=== PATIENT | female | born 1960 | race Caucasian/White ===

== ENCOUNTER → 2018-05-29 | Outpatient (CLI) | payer OTHER ==
[~2018-05-29] MED LIST: ALPR-475 PO; ALPR0.25 PO; ASCO10004 PO; C-TESTOSTERONE PO; CAL/MAG/ZINC PO; ESTR8.1S2 TP; PROG100C2 PO; VITA1TAB19 PO; [UNRECOGNIZED DRUG - OTHER] PO
[2018-05-29 09:01] LABS: BASOPHILS # (AUTO) 0.03 x10^3/uL (0-0.1); BASOPHILS % (AUTO) 1 % (0-1); EOSINOPHILS # (AUTO) 0.07 x10^3/uL (0-0.4); EOSINOPHILS % (AUTO) 2 % (1-7); LYMPHOCYTES # (AUTO) 1.16 x10^3/uL (1-3.4); LYMPHOCYTES % (AUTO) 29 % (22-44); MD NO; MEAN CORPUSCULAR HEMOGLOBIN 30.9 pg (27.0-34.8); MEAN CORPUSCULAR VOLUME 91.1 fL (80-100); MEAN PLATELET VOLUME 8.3 fL (7.4-10.4); MONOCYTES # (AUTO) 0.31 x10^3/uL (0.2-0.8); MONOCYTES % (AUTO) 8 % (2-9); NEUTROPHILS # (AUTO) 2.45 x10^3/uL (1.8-6.8); NEUTROPHILS % (AUTO) 61 % (42-75); PLATELET COUNT 219 x10^3/uL (130-400); RED BLOOD COUNT 4.66 x10^6/uL (3.82-5.3); RED CELL DISTRIBUTION WIDTH 12.9 % (9.6-15.2)
[2018-05-29 09:14] LABS: ALANINE AMINOTRANSFERASE 26 U/L (12-78); ALBUMIN 3.8 g/dL (3.4-5.0); ANION GAP 3 mmol/L (5-15); CALCIUM 8.9 mg/dL (8.5-10.1); CHLORIDE 106 mmol/L (98-107)
[2018-05-29 09:17] LABS: ALKALINE PHOSPHATASE 55 U/L (45-117); BILIRUBIN,TOTAL 0.4 mg/dL (0.2-1.0); CREATININE 0.74 mg/dL (0.55-1.02); TOTAL PROTEIN 7.1 g/dL (6.4-8.2)
== END | disposition home or self-care (01) ==
LOC: MERGE 07:53 → STAR 07:53
PROVIDERS: ATTEND Colon & Rectal Surgery
DX: Z01.818 Encounter for other preprocedural examination (principal)
CPT/HCPCS: 36415; 80053; 85025; 93005

== ENCOUNTER 2018-06-06 07:27 | Inpatient (IN) | payer OTHER ==
[~2018-06-06] VITALS: Ht 157.5 cm; Wt 53.3 kg
[~2018-06-06 07:27] MED LIST changes: +BUPIVACAINE/PF-EPI 0.5% 1:200K ONE; +INDOCYANINE GREEN 25 MG VIAL ONE
[2018-06-06] MEDS ORDERED: SCOPOLAMINE PATCH, 1.5MG PATCH.TD72 TD ONE (08:10)
[2018-06-06 08:23] VITALS: BP 129/81
[2018-06-06] MEDS: LACTATED RINGERS 1,000 ML IV SCH ×2 (08:23→18:15)
[2018-06-06] MEDS ORDERED: DEXAMETHASONE 4 MG/ML, 1ML ONE ×2 (10:28→14:30)
[2018-06-06] MEDS ORDERED: PROPOFOL 10 MG/ML, 20ML ONE (10:29)
[2018-06-06] MEDS ORDERED: ONDANSETRON 2MG/ML, 2ML ONE (10:29)
[2018-06-06] MEDS ORDERED: LIDOCAINE-MPF 2% ,5ML ONE (10:29)
[2018-06-06] MEDS ORDERED: ROCURONIUM 10MG/ML,5ML ONE (10:29)
[2018-06-06] MEDS ORDERED: METOCLOPRAMIDE 5 MG/ML, 2ML ONE (10:29)
[2018-06-06] MEDS ORDERED: MIDAZOLAM 1 MG/ML, 2ML ONE (10:30)
[2018-06-06] MEDS ORDERED: FENTANYL PF 100 MCG/2ML ONE ×2 (10:30→15:28)
[2018-06-06] MEDS ORDERED: CEFOTETAN 1 GM ONE (12:59)
[2018-06-06] MEDS ORDERED: NEOSTIGMINE 1 MG/ML, 10ML ONE (14:30)
[2018-06-06] MEDS ORDERED: GLYCOPYRROLATE 0.2MG/1ML, 5ML ONE (14:31)
[2018-06-06] MEDS ORDERED: HYDROmorphone 2 MG/ML, 1ML ONE (15:28)
[2018-06-06] MEDS ORDERED: HYDROmorphone 2 MG/ML, 1ML IV PRN (15:30)
[2018-06-06] MEDS ORDERED: ONDANSETRON 2MG/ML, 2ML IVPush PRN (15:30)
[2018-06-06] MEDS ORDERED: LABETALOL 5MG/ML, 20ML IV PRN (15:30)
[2018-06-06] MEDS ORDERED: MEPERIDINE/PF 25MG/0.5ML IVPush PRN (15:30)
[2018-06-06] MEDS ORDERED: MIDAZOLAM 1 MG/ML, 2ML IV PRN (15:30)
[2018-06-06] MEDS: FENTANYL PF 100 MCG/2ML IV PRN ×3 (15:30→15:40)
[2018-06-06] MEDS ORDERED: OXYcodone 5 MG/5 ML ORAL.SOL UDC PO PRN ×2 (15:30→16:00)
[2018-06-06] MEDS ORDERED: OXYcodone 5 MG/5 ML ORAL.SOL UDC ONE (15:58)
[2018-06-06] MEDS ORDERED: DEXAMETHASONE 4 MG/ML, 1ML IVPush PRN (18:00)
[2018-06-06] MEDS ORDERED: MORPHINE SULFATE 4 MG/ML, 1ML IVPush PRN (18:00)
[2018-06-06] MEDS ORDERED: TRAZODONE 50MG TABLET PO PRN (18:00)
[2018-06-06] MEDS ORDERED: DIPHENHYDRAMINE 25 MG CAPSULE PO PRN (18:00)
[2018-06-06] MEDS ORDERED: HALOPERIDOL 5 MG/ML IVPush PRN (18:00)
[2018-06-06] MEDS ORDERED: ONDANSETRON 2MG/ML, 2ML IV PRN (18:00)
[2018-06-06] MEDS ORDERED: OXYcodone IR 5MG TABLET PO PRN (18:00)
[2018-06-06] MEDS ORDERED: SCOPOLAMINE PATCH, 1.5MG PATCH.TD72 TD PRN (18:00)
[2018-06-06] MEDS ORDERED: LORazepam 1MG TABLET PO PRN (18:00)
[2018-06-06] MEDS ORDERED: CALCIUM CARBONATE 500 MG TAB.CHEW PO PRN (18:00)
[2018-06-06] MEDS ORDERED: LORazepam 2 MG/ML, 1ML IVPush PRN (18:00)
[2018-06-06] MEDS ORDERED: DIPHENHYDRAMINE 50 MG/ML, 1ML IVPush PRN (18:00)
[2018-06-06] MEDS: ACETAMINOPHEN 500 MG TABLET PO SCH (18:00)
[2018-06-06 19:54] VITALS: BP 105/61
[2018-06-07] MEDS: ACETAMINOPHEN 500 MG TABLET PO SCH ×4 (00:25→14:42)
[2018-06-07 00:45] VITALS: BP 108/66
[2018-06-07 04:35] LABS: BASOPHILS # (AUTO) 0.01 x10^3/uL (0-0.1); BASOPHILS % (AUTO) 0 % (0-1); EOSINOPHILS # (AUTO) 0.01 x10^3/uL (0-0.4); EOSINOPHILS % (AUTO) 0 % (1-7); LYMPHOCYTES # (AUTO) 0.79 x10^3/uL (1-3.4); LYMPHOCYTES % (AUTO) 7 % (22-44); MD NO; MEAN CORPUSCULAR HEMOGLOBIN 31.6 pg (27.0-34.8); MEAN CORPUSCULAR HGB CONC 34.1 g/dL (32.4-35.8); MEAN CORPUSCULAR VOLUME 92.7 fL (80-100); MEAN PLATELET VOLUME 8.7 fL (7.4-10.4); MONOCYTES # (AUTO) 0.67 x10^3/uL (0.2-0.8); MONOCYTES % (AUTO) 6 % (2-9); NEUTROPHILS # (AUTO) 9.41 x10^3/uL (1.8-6.8); NEUTROPHILS % (AUTO) 86 % (42-75); PLATELET COUNT 182 x10^3/uL (130-400); RED BLOOD COUNT 3.96 x10^6/uL (3.82-5.3); RED CELL DISTRIBUTION WIDTH 12.5 % (9.6-15.2)
[2018-06-07 04:36] VITALS: BP 98/55
[2018-06-07 04:47] LABS: ANION GAP 7 mmol/L (5-15); CALCIUM 8.2 mg/dL (8.5-10.1); CHLORIDE 105 mmol/L (98-107); CREATININE 0.65 mg/dL (0.55-1.02)
[2018-06-07 07:28] VITALS: BP 122/80
[2018-06-07] MEDS ORDERED: ENOXAPARIN 40 MG/0.4 ML SQ SCH (09:00)
[2018-06-07 12:28] VITALS: BP 119/77
[2018-06-07] MEDS ORDERED: OXYC-302 PO (13:27)
[2018-06-07 18:00] VITALS: BP 124/78
== END 2018-06-07 18:23 | disposition home or self-care (01) | DRG 331 ==
LOC: ORIP 07:27 → 4NOR 16:56
PROVIDERS: ADMIT Colon & Rectal Surgery; ATTEND Colon & Rectal Surgery
PROC: 07BB4ZZ Excision of Mesenteric Lymphatic, Percutaneous Endoscopic Approach (ICD-10-PCS; 2018-06-06)
PROC: 0DBL4ZZ Excision of Transverse Colon, Percutaneous Endoscopic Approach (ICD-10-PCS; principal; 2018-06-06 10:00)
DX: D12.3 Benign neoplasm of transverse colon (principal); D12.0 Benign neoplasm of cecum; D12.4 Benign neoplasm of descending colon
CPT/HCPCS: 36415; J3490; S0074; 80048; 83735; 85025; 86850; 86900; 88305; 88309; C1729; G0378; J1100; J1170; J1650; J2250; J2405; J2704; J2710; J3010; J2765; J7120

== ENCOUNTER → 2018-07-04 | Outpatient (CLI) | payer OTHER ==
[~2018-07-04] MED LIST changes: -BUPIVACAINE/PF-EPI 0.5% 1:200K ONE; -INDOCYANINE GREEN 25 MG VIAL ONE; +OMNIPAQUE 350 MG/ML, 100ML BOTTLE ONE; +OXYC-302 PO
== END | disposition home or self-care (01) ==
LOC: CFH 09:38
PROVIDERS: ATTEND Colon & Rectal Surgery
DX: K76.89 Other specified diseases of liver (principal); R91.8 Other nonspecific abnormal finding of lung field; C20 Malignant neoplasm of rectum
CPT/HCPCS: 71260; 74177; Q9967

== ENCOUNTER 2018-07-05 16:55 | Emergency (ER) | payer OTHER ==
[~2018-07-05] VITALS: Ht 157.5 cm; Wt 47.4 kg
[~2018-07-05 16:55] MED LIST changes: -OMNIPAQUE 350 MG/ML, 100ML BOTTLE ONE
[2018-07-05 17:42] LABS: BASOPHILS # (AUTO) 0.06 x10^3/uL (0-0.1); BASOPHILS % (AUTO) 1 % (0-1); EOSINOPHILS # (AUTO) 0.01 x10^3/uL (0-0.4); EOSINOPHILS % (AUTO) 0 % (1-7); LYMPHOCYTES # (AUTO) 0.85 x10^3/uL (1-3.4); LYMPHOCYTES % (AUTO) 7 % (22-44); MD NO; MEAN CORPUSCULAR HEMOGLOBIN 31.2 pg (27.0-34.8); MEAN CORPUSCULAR HGB CONC 34.1 g/dL (32.4-35.8); MEAN CORPUSCULAR VOLUME 91.4 fL (80-100); MONOCYTES # (AUTO) 1.13 x10^3/uL (0.2-0.8); MONOCYTES % (AUTO) 9 % (2-9); NEUTROPHILS # (AUTO) 10.85 x10^3/uL (1.8-6.8); NEUTROPHILS % (AUTO) 84 % (42-75); PLATELET COUNT 238 x10^3/uL (130-400); RED BLOOD COUNT 4.98 x10^6/uL (3.82-5.3); RED CELL DISTRIBUTION WIDTH 12.5 % (9.6-15.2)
[2018-07-05 17:57] LABS: ANION GAP 7 mmol/L (5-15); CALCIUM 8.9 mg/dL (8.5-10.1); CHLORIDE 102 mmol/L (98-107); CREATININE 0.72 mg/dL (0.55-1.02)
[2018-07-05 17:58] LABS: ALANINE AMINOTRANSFERASE 25 U/L (12-78)
[2018-07-05 18:00] LABS: ALKALINE PHOSPHATASE 69 U/L (45-117); BILIRUBIN,TOTAL 0.4 mg/dL (0.2-1.0); TOTAL PROTEIN 7.8 g/dL (6.4-8.2)
[2018-07-05] MEDS ORDERED: SODIUM CHLORIDE 0.9% 1,000ML IVBOLUS ONE (18:00)
[2018-07-05] MEDS ORDERED: SODIUM CHLORIDE 0.9% 1,000 ML IV ONE (18:00)
[2018-07-05] MEDS ORDERED: MORPHINE SULFATE 4 MG/ML, 1ML IVPush PRN (18:00)
[2018-07-05] MEDS ORDERED: ONDANSETRON 2MG/ML, 2ML IVPush ONE (18:00)
[2018-07-05] MEDS ORDERED: MORPHINE SULFATE 4 MG/ML, 1ML ONE ×2 (18:42→18:43)
[2018-07-05] MEDS ORDERED: ONDANSETRON 2MG/ML, 2ML ONE (18:42)
[2018-07-05] MEDS ORDERED: SODIUM CHLORIDE FLUSH 10ML SYR IVF ONE ×2 (19:00)
[2018-07-05] MEDS ORDERED: ACETAMINOPHEN 325 MG TABLET PO ONE (19:30)
[2018-07-05] MEDS ORDERED: ACETAMINOPHEN 325 MG TABLET ONE (19:39)
[2018-07-05 20:10] VITALS: BP 120/72
== END 2018-07-05 20:13 | disposition home or self-care (01) ==
LOC: ED 17:43
DX: R10.84 Generalized abdominal pain (principal); Z85.048 Personal history of other malignant neoplasm of rectum, rectosigmoid junction, and anus
CPT/HCPCS: 36415; 80053; 83690; 85025; 93005; 96374; 99285; J2405; J7030

== ENCOUNTER 2018-07-13 11:28 | Inpatient (IN) | payer OTHER ==
[~2018-07-13] VITALS: Ht 157.5 cm; Wt 46.0 kg
[2018-07-13 13:04] LABS: BASOPHILS # (AUTO) 0.04 x10^3/uL (0-0.1); BASOPHILS % (AUTO) 0 % (0-1); EOSINOPHILS # (AUTO) 0.08 x10^3/uL (0-0.4); EOSINOPHILS % (AUTO) 1 % (1-7); LYMPHOCYTES # (AUTO) 0.99 x10^3/uL (1-3.4); LYMPHOCYTES % (AUTO) 10 % (22-44); MD NO; MEAN CORPUSCULAR HEMOGLOBIN 30.2 pg (27.0-34.8); MEAN CORPUSCULAR HGB CONC 33.6 g/dL (32.4-35.8); MEAN CORPUSCULAR VOLUME 90.1 fL (80-100); MEAN PLATELET VOLUME 7.8 fL (7.4-10.4); MONOCYTES # (AUTO) 0.86 x10^3/uL (0.2-0.8); MONOCYTES % (AUTO) 9 % (2-9); NEUTROPHILS % (AUTO) 80 % (42-75); PLATELET COUNT 293 x10^3/uL (130-400); RED BLOOD COUNT 4.86 x10^6/uL (3.82-5.3); RED CELL DISTRIBUTION WIDTH 12.6 % (9.6-15.2)
[2018-07-13 13:16] LABS: ALANINE AMINOTRANSFERASE 27 U/L (12-78); ALBUMIN 3.4 g/dL (3.4-5.0); ANION GAP 9 mmol/L (5-15); CALCIUM 8.9 mg/dL (8.5-10.1); CHLORIDE 100 mmol/L (98-107); CREATININE 0.64 mg/dL (0.55-1.02)
[2018-07-13 13:18] LABS: ALKALINE PHOSPHATASE 72 U/L (45-117); BILIRUBIN,TOTAL 0.3 mg/dL (0.2-1.0); TOTAL PROTEIN 7.4 g/dL (6.4-8.2)
[2018-07-13] MEDS ORDERED: HYDROcodone/APAP 5/325 TABLET ONE ×2 (13:51→18:12)
[2018-07-13] MEDS ORDERED: LIDOCAINE-MPF 1%, 5ML ONE (13:55)
[2018-07-13] MEDS ORDERED: ONDANSETRON ODT 4 MG ONE (13:55)
[2018-07-13] MEDS ORDERED: ONDANSETRON ODT 4 MG PO ONE (14:00)
[2018-07-13] MEDS ORDERED: ACETAMINOPHEN 500 MG TABLET PO ONE (14:00)
[2018-07-13] MEDS ORDERED: HYDROcodone/APAP 5/325 TABLET PO ONE ×2 (14:00→18:30)
[2018-07-13 14:27] LABS: CLOSTRIDIUM DIFFICILE TOXIN NEGATIVE (Negative)
[2018-07-13 14:28] LABS: CLOSTRIDIUM DIFFICILE ANTIGEN POSITIVE
[2018-07-13] MEDS ORDERED: FENTANYL PF 100 MCG/2ML ONE (17:14)
[2018-07-13] MEDS: FENTANYL PF 100 MCG/2ML IVPush PRN ×2 (17:26→17:53)
[2018-07-13] MEDS ORDERED: SODIUM CHLORIDE 0.9% 1,000 ML IV ONE (17:46)
[2018-07-13] MEDS ORDERED: SODIUM CHLORIDE FLUSH 10ML SYR IVF PRN (18:00)
[2018-07-13] MEDS ORDERED: KETOROLAC 30 MG/1 ML ONE (19:41)
[2018-07-13] MEDS: ENOXAPARIN 40 MG/0.4 ML SQ SCH (19:59)
[2018-07-13] MEDS ORDERED: KETOROLAC 30 MG/1 ML IVPush ONE (20:00)
[2018-07-13] MEDS ORDERED: HYDROcodone/APAP 5/325 TABLET PO PRN (20:00)
[2018-07-13] MEDS ORDERED: ONDANSETRON ODT 4 MG PO PRN (20:00)
[2018-07-13] MEDS ORDERED: GABAPENTIN 300 MG CAPSULE PO PRN (20:00)
[2018-07-13] MEDS ORDERED: DOCUSATE 100 MG CAPSULE PO PRN (20:00)
[2018-07-13 20:06] VITALS: BP 124/78
[2018-07-14 01:32] VITALS: BP 102/66
[2018-07-14] MEDS: KETOROLAC 30 MG/1 ML IV PRN ×2 (02:20→08:53)
[2018-07-14 05:00] LABS: MEAN CORPUSCULAR HEMOGLOBIN 31.1 pg (27.0-34.8); MEAN CORPUSCULAR HGB CONC 34.2 g/dL (32.4-35.8); MEAN CORPUSCULAR VOLUME 90.8 fL (80-100); MEAN PLATELET VOLUME 8.4 fL (7.4-10.4); PLATELET COUNT 242 x10^3/uL (130-400); RED BLOOD COUNT 4.38 x10^6/uL (3.82-5.3); RED CELL DISTRIBUTION WIDTH 12.4 % (9.6-15.2)
[2018-07-14 05:14] LABS: ANION GAP 5 mmol/L (5-15); CHLORIDE 99 mmol/L (98-107)
[2018-07-14 05:16] LABS: CREATININE 0.64 mg/dL (0.55-1.02)
[2018-07-14 05:21] LABS: BASOPHILS # (AUTO) 0.01 x10^3/uL (0-0.1); BASOPHILS % (AUTO) 0 % (0-1); EOSINOPHILS # (AUTO) 0.01 x10^3/uL (0-0.4); EOSINOPHILS % (AUTO) 0 % (1-7); LYMPHOCYTES # (AUTO) 1.11 x10^3/uL (1-3.4); LYMPHOCYTES % (AUTO) 10 % (22-44); MD SCAN; MONOCYTES % (AUTO) 13 % (2-9); NEUTROPHILS # (AUTO) 8.88 x10^3/uL (1.8-6.8); NEUTROPHILS % (AUTO) 77 % (42-75)
[2018-07-14 06:47] VITALS: BP 123/72
[2018-07-14] MEDS: metroNIDAZOLE 500 MG TABLET PO SCH ×3 (08:52→23:59)
[2018-07-14 13:39] VITALS: BP 111/68
[2018-07-14] MEDS: KETOROLAC 30 MG/1 ML IVPush PRN ×2 (15:07→21:51)
[2018-07-14 19:58] VITALS: BP 118/68
[2018-07-14] MEDS: LIDODERM 5% PATCH TD PRN (21:51)
[2018-07-14] MEDS: TEMAZEPAM 15 MG CAPSULE PO PRN ×2 (21:51→22:03)
[2018-07-14] MEDS: ENOXAPARIN 40 MG/0.4 ML SQ SCH (22:03)
[2018-07-15 01:53] VITALS: BP 109/71
[2018-07-15] MEDS: KETOROLAC 30 MG/1 ML IVPush PRN (04:17)
[2018-07-15 04:31] LABS: MEAN CORPUSCULAR HEMOGLOBIN 31.1 pg (27.0-34.8); MEAN CORPUSCULAR HGB CONC 34.3 g/dL (32.4-35.8); MEAN CORPUSCULAR VOLUME 90.8 fL (80-100); MEAN PLATELET VOLUME 8.4 fL (7.4-10.4); PLATELET COUNT 237 x10^3/uL (130-400); RED BLOOD COUNT 4.39 x10^6/uL (3.82-5.3); RED CELL DISTRIBUTION WIDTH 12.4 % (9.6-15.2)
[2018-07-15 04:43] LABS: ALANINE AMINOTRANSFERASE 53 U/L (12-78); ALBUMIN 2.6 g/dL (3.4-5.0); ANION GAP 10 mmol/L (5-15); CALCIUM 8.9 mg/dL (8.5-10.1); CHLORIDE 102 mmol/L (98-107); CREATININE 0.55 mg/dL (0.55-1.02)
[2018-07-15 04:45] LABS: ALKALINE PHOSPHATASE 87 U/L (45-117); BILIRUBIN,TOTAL 0.6 mg/dL (0.2-1.0); TOTAL PROTEIN 6.8 g/dL (6.4-8.2)
[2018-07-15 05:42] LABS: BASOPHILS % (AUTO) 0 % (0-1); EOSINOPHILS # (AUTO) 0.02 x10^3/uL (0-0.4); EOSINOPHILS % (AUTO) 0 % (1-7); LYMPHOCYTES # (AUTO) 0.99 x10^3/uL (1-3.4); LYMPHOCYTES % (AUTO) 8 % (22-44); MD SCAN; MONOCYTES # (AUTO) 1.63 x10^3/uL (0.2-0.8); MONOCYTES % (AUTO) 13 % (2-9); NEUTROPHILS # (AUTO) 10.08 x10^3/uL (1.8-6.8); NEUTROPHILS % (AUTO) 79 % (42-75)
[2018-07-15 07:52] VITALS: BP 101/67
[2018-07-15] MEDS ORDERED: VANCOMYCIN 50 MG/ML ORAL SUSP PO SCH (11:00)
[2018-07-15] MEDS ORDERED: IBUPROFEN 100 MG/5 ML UDC PO PRN (11:30)
[2018-07-15] MEDS: IBUPROFEN 200 MG TABLET PO PRN ×2 (11:36→17:59)
[2018-07-15] MEDS: metroNIDAZOLE 500 MG TABLET PO SCH ×3 (13:00→21:24)
[2018-07-15] MEDS ORDERED: ONDA4TAB13 PO (13:33)
[2018-07-15] MEDS ORDERED: GABA300C10 PO (13:33)
[2018-07-15] MEDS ORDERED: METR500T PO (13:33)
[2018-07-15] MEDS ORDERED: ACET500T71 PO (13:33)
[2018-07-15] MEDS ORDERED: IBUP-1484 PO (13:33)
[2018-07-15 14:24] VITALS: BP 110/77
[2018-07-15] MEDS ORDERED: metroNIDAZOLE 500 MG TABLET PO SCH (16:00)
[2018-07-15] MEDS ORDERED: VANCOMYCIN PMX 1GM/200ML 200 ML IV ONE (17:30)
[2018-07-15 19:20] VITALS: BP 113/72
[2018-07-15] MEDS: TEMAZEPAM 15 MG CAPSULE PO PRN (21:22)
[2018-07-15] MEDS: ENOXAPARIN 40 MG/0.4 ML SQ SCH (21:23)
[2018-07-15] MEDS: LIDODERM 5% PATCH TD PRN (21:25)
[2018-07-16] MEDS: IBUPROFEN 200 MG TABLET PO PRN ×3 (00:09→13:56)
[2018-07-16 01:27] VITALS: BP 104/64
[2018-07-16 07:40] VITALS: BP 110/72
[2018-07-16 07:41] LABS: BASOPHILS # (AUTO) 0.02 x10^3/uL (0-0.1); BASOPHILS % (AUTO) 0 % (0-1); EOSINOPHILS # (AUTO) 0.12 x10^3/uL (0-0.4); EOSINOPHILS % (AUTO) 1 % (1-7); LYMPHOCYTES # (AUTO) 0.65 x10^3/uL (1-3.4); LYMPHOCYTES % (AUTO) 6 % (22-44); MD NO; MEAN CORPUSCULAR HEMOGLOBIN 30.4 pg (27.0-34.8); MEAN CORPUSCULAR HGB CONC 33.5 g/dL (32.4-35.8); MEAN CORPUSCULAR VOLUME 90.9 fL (80-100); MEAN PLATELET VOLUME 7.8 fL (7.4-10.4); MONOCYTES # (AUTO) 1.06 x10^3/uL (0.2-0.8); MONOCYTES % (AUTO) 10 % (2-9); NEUTROPHILS # (AUTO) 8.33 x10^3/uL (1.8-6.8); NEUTROPHILS % (AUTO) 82 % (42-75); PLATELET COUNT 251 x10^3/uL (130-400); RED BLOOD COUNT 3.93 x10^6/uL (3.82-5.3); RED CELL DISTRIBUTION WIDTH 12.4 % (9.6-15.2)
[2018-07-16] MEDS: metroNIDAZOLE 500 MG TABLET PO SCH ×2 (09:27→16:29)
[2018-07-16 13:32] VITALS: BP 111/75
== END 2018-07-16 18:27 | disposition home or self-care (01) | DRG 372 ==
LOC: ED 14:00 → INTOOBSV 19:00 → EDIP 19:00 → OBSVTOIN 19:00 → 3NW 19:01
PROVIDERS: ADMIT Internal Medicine; ATTEND Internal Medicine
PROC: 0S9C3ZZ Drainage of Right Knee Joint, Percutaneous Approach (ICD-10-PCS; principal; 2018-07-13)
DX: A04.72 Enterocolitis due to Clostridium difficile, not specified as recurrent (principal); E87.1 Hypo-osmolality and hyponatremia; M25.461 Effusion, right knee; M70.41 Prepatellar bursitis, right knee; M17.11 Unilateral primary osteoarthritis, right knee; Y93.89 Activity, other specified; Z85.048 Personal history of other malignant neoplasm of rectum, rectosigmoid junction, and anus; Z90.49 Acquired absence of other specified parts of digestive tract; Z88.8 Allergy status to other drugs, medicaments and biological substances; Z85.038 Personal history of other malignant neoplasm of large intestine
CPT/HCPCS: 20610; 36415; 73564; 82945; 84560; 87046; 87427; 99285; J3370; 80048; 80053; 83615; 84157; 85025; 85810; 86592; 87070; 87205; 87324; 87493; 89050; 89055; 89060; 96374; 96376; G0378; J1885; J3010; Q0162

== ENCOUNTER 2018-08-05 05:56 | Day surgery (SDC) | payer OTHER ==
[~2018-08-05 05:56] MED LIST changes: +ACET500T71 PO; +GABA300C10 PO; +IBUP-1484 PO; +METR500T PO; +ONDA4TAB13 PO
[2018-08-05] MEDS ORDERED: SODIUM CHLORIDE 0.9% 1,000 ML IV SCH (06:38)
[2018-08-05] MEDS ORDERED: FENTANYL PF 100 MCG/2ML ONE ×2 (07:35→07:36)
[2018-08-05] MEDS ORDERED: MIDAZOLAM 1 MG/ML, 5ML ONE (07:36)
[2018-08-05] MEDS ORDERED: NALOXONE 1 MG/ML, 2ML ONE (07:36)
[2018-08-05] MEDS ORDERED: FLUMAZENIL 0.1 MG/1 ML, 5ML ONE (07:36)
[2018-08-05] MEDS ORDERED: LIDOCAINE-MPF 1%, 5ML ONE (07:48)
== END 2018-08-05 11:20 | disposition home or self-care (01) ==
LOC: OUT 05:56 → EDSTATUS 07:30 → OUT 11:20
PROVIDERS: ATTEND Colon & Rectal Surgery
DX: J98.4 Other disorders of lung (principal); Z85.038 Personal history of other malignant neoplasm of large intestine
CPT/HCPCS: 32405; 71045; 77012; 88305; 99156; C2613; J2250; J3010; J7030; 99157; J2310

== ENCOUNTER → 2018-08-22 | Outpatient (CLI) | payer OTHER | END | disposition home or self-care (01) | LOC: PETCFH 11:11 | PROVIDERS: ATTEND Specialist | DX: C18.4 Malignant neoplasm of transverse colon (principal) | CPT/HCPCS: 78306; A9503 ==